=== PATIENT | male | born 1970 | race Caucasian/White ===

== ENCOUNTER → 2016-11-07 | Outpatient (CLI) | payer OTHER ==
--- NOTE | 2016-11-07 14:15 | CT ---
EXAMINATION TYPE: CT abdomen pelvis w con DATE OF EXAM: 11/07/2016 COMPARISON: NONE HISTORY: Abdominal pain. History of biliary cyst. CT DLP: 1134 mGycm Automated exposure control for dose reduction was used. TECHNIQUE: Helical acquisition of images was performed from the lung bases through the pelvis. CONTRAST: Performed with Oral Contrast and with IV Contrast, patient injected with 100 ml mL of Omnipaque 300. FINDINGS: LUNG BASES: No significant abnormality is appreciated. LIVER/GB: Within segment 6 of the liver there is a 1.4 x 1.3 cm fluid attenuated hepatic lesion, whic h appears slightly atypical given its ill-defined margins. No evidence of cholelithiasis on CT. PANCREAS: No significant abnormality is seen. No ductal dilatation. SPLEEN: No significant abnormality is seen. Subcentimeter splenule is incidentally noted inferior to the rampart spleen. ADRENALS: No significant abnormality is seen. KIDNEYS: No significant abnormality is seen. FREE AIR: No free air is visualized. RETROPERITONEAL ADENOPATHY: None visualized REPRODUCTIVE ORGANS: No significant abnormality is seen URINARY BLADDER: No significant abnormality is seen. PELVIC ADENOPATHY: None visualized. OSSEOUS STRUCTURES: No significant abnormality is seen. BOWEL: No significant abnormality is seen. Incidental note is made of a small diverticulum of the du odenal bulb. OTHER: Short segment fusiform ectasia seen of the infrarenal abdominal aorta measuring 2.0 cm in dist ance and 1.9 cm in transverse dimension on series 5 image 44. The aorta proximal to the area of ectas ia measures 1.3 cm and distal measures 1.4 cm. IMPRESSION: 1. SLIGHTLY ATYPICAL PROBABLE HEPATIC CYST. COMPARISON WITH ANY PRIOR OUTSIDE IMAGING IS RECOMMENDED TO DETERMINE STABILITY. OTHERWISE ATTENTION ON FOLLOW-UP EXAMS IS RECOMMENDED. 2. 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
== END | disposition home or self-care (01) ==
LOC: RADCTMAIN 11:47
PROVIDERS: ATTEND Family Medicine
DX: I77.811 Abdominal aortic ectasia (principal); K83.5 Biliary cyst
CPT/HCPCS: 74177; Q9967

== ENCOUNTER 2017-05-26 11:24 | Day surgery (SDC) | payer OTHER ==
[2017-05-22 09:27] VITALS: BMI 24.4
[~2017-05-26 11:24] MED LIST: LACTATED RINGERS 1,000 ML IV SCH
[2017-05-26 12:20] VITALS: RESP 16; TEMP 97.1
[2017-05-26] MEDS ORDERED: LIDOCAINE 1% 20 ML VIAL (10MG/ML) FOR IV START INTRADERMA ONE (12:23)
[2017-05-26] MEDS ORDERED: KETAMINE 10 MG/ML 20 ML VIAL ONE (13:01)
[2017-05-26] MEDS ORDERED: PROPOFOL 10 MG/ML 20 ML VIAL IV ONE (13:01)
--- NOTE | 2017-05-26 13:28 | P.PCN ---
Date of Procedure: 05/26/17 Procedure(s) Performed: Procedure: Esophagogastroduodenoscopy and biopsy. Preoperative diagnosis: Chronic reflux symptoms requiring increasing doses of acid suppressive medications. Postoperative diagnosis: 1. Sliding hiatal hernia with no obvious esophagitis or complicated reflux disease. 2. Mild gastritis and duodenitis with no ulcers or gastric outlet obstruction. 3. Multiple biopsies obtained from the duodenum , antrum and esophagus. Preparation and sedation: Was provided by anesthesia. Brief clinical history: The patient is a 46-year-old male who is scheduled for this evaluation because of chronic reflux symptoms that his requiring increasing doses of acid suppressive therapy. The patient denied any alarm symptoms or supra esophageal manifestations of reflux. This evaluation is to assess for his esophagitis and rule out complicated reflux disease or other pathology. Procedure: With the patient on his left lateral decubitus position and after informed consent and adequate sedation, I passed the Olympus-GIF 160 video upper endoscope through the cricopharyngeus down the esophagus. GE junction was around 40 cm from the incisors and there was a small sliding hiatal hernia but no obvious esophagitis or complicated reflux disease. There were few small sticky white exudate in the distal esophagus of uncertain significance. Biopsies were obtained from those areas in addition to aspirin the esophagus and the conclusion of the examination. The endoscope was then passed into the stomach which was insufflated with air and inspected in detail including the retroflex view in the cardia. There was some mottling and erythema in the stomach most obvious in the antrum and immediate prepyloric area but there were no ulcers or erosions. Pyloric channel did not show any ulcers. Duodenal bulb , post bulbar area and descending duodenum showed minimal erythema but no ulcers or erosions. I obtained biopsies from the duodenum, antrum and esophagus then the endoscope was withdrawn. The patient tolerated the procedure well. Plan: The patient was reassured. Will await biopsy results. In the meantime, he will continue antireflux diet and measures and continue his medical therapy and he will follow up with you as planned. I will be happy to see in the office if his symptoms persist.
[2017-05-26 13:43] VITALS: BP 118/74; PULSE 82
== END 2017-05-26 14:03 | disposition home or self-care (01) ==
LOC: ORWHC2ENDO 11:24
DX: K21.9 Gastro-esophageal reflux disease without esophagitis (principal); K29.50 Unspecified chronic gastritis without bleeding; K44.9 Diaphragmatic hernia without obstruction or gangrene; K29.80 Duodenitis without bleeding; F17.200 Nicotine dependence, unspecified, uncomplicated; Z79.899 Other long term (current) drug therapy
CPT/HCPCS: 88305; 43239; J2704

== ENCOUNTER 2020-09-04 09:11 | Day surgery (SDC) | payer OTHER ==
[2020-08-30 08:38] VITALS: BMI 23.7
[~2020-09-04 09:11] MED LIST changes: +LIDOCAINE 1% (10MG/ML) FOR IV START INTRADERMA PRN
[2020-09-04 09:36] VITALS: TEMP 97.2
[2020-09-04] MEDS ORDERED: LIDOCAINE 1% INJ 10MG/ML (20 ML MDV) ONE (10:12)
[2020-09-04] MEDS ORDERED: PROPOFOL 10 MG/ML 20 ML VIAL IV ONE (10:12)
--- NOTE | 2020-09-04 10:49 | P.PCN ---
Date of Procedure: 09/04/20 Description of Procedure: BRIEF HISTORY: Patient is a 49-year-old male presenting for outpatient colonoscopy for screening for malignant neoplasm of the colon. No prior colonoscopies. A history of colon cancer reported. No change in bowel habits or bowel movement reported. PROCEDURE PERFORMED: Colonoscopy with polypectomy. PREOPERATIVE DIAGNOSIS: []Screening for malignant neoplasm of the colon, no prior colonoscopy. ESTIMATED BLOOD LOSS: Minimal. IV sedation per Anesthesia. PROCEDURE: After informed consent was obtained, the patient, was brought into the endoscopy unit. IV sedation was administered by Anesthesia under continuous monitoring. Digital rectal examination was normal. Initially the Olympus CF-190 flexible video colonoscope was then inserted in the rectum, gradually advanced into the cecum without any difficulty. Careful examination was performed as the scope was gradually being withdrawn. Ileocecal valve and the appendiceal orifice were visualized and appeared normal. Prep was excellent. Mucosa of the cecum, ascending colon, transverse colon, descending colon, sigmoid colon, and rectum appeared normal. 2 flat polyps removed from the sigmoid colon with cold snare polypectomy measuring 2-3 mm in size, 1 flat polyp removed from the hepatic flexure measuring 5 mm in size with cold snare polypectomy. A few scattered diverticula noted in the sigmoid colon. Retroflexion was performed in the rectum and no lesions were seen, low-grade internal hemorrhoids. The patient tolerated the procedure well. IMPRESSION: 3 flat polyps removed with cold snare polypectomy from the hepatic flexure and sigmoid colon 2. Mild sigmoid diverticulosis. Internal hemorrhoids. RECOMMENDATIONS: Findings of this examination were discussed with the patient and his family. Okay to resume diet. Okay to resume medications. Await pathology from polypectomies. Recommend repeat colonoscopy in 5 years for colon polyps pending pathology from polypectomies.
[2020-09-04 10:51] VITALS: RESP 16
[2020-09-04 11:05] VITALS: BP 115/86; PULSE 71
== END 2020-09-04 11:23 | disposition home or self-care (01) ==
LOC: ORWHC2ENDO 09:11
PROVIDERS: ATTEND Internal Medicine
DX: Z12.11 Encounter for screening for malignant neoplasm of colon (principal); D12.3 Benign neoplasm of transverse colon; F17.210 Nicotine dependence, cigarettes, uncomplicated; K21.9 Gastro-esophageal reflux disease without esophagitis; Z79.899 Other long term (current) drug therapy
CPT/HCPCS: 88305; 45385; J2001; J2704